=== PATIENT | male | born 1995 ===

== ENCOUNTER 2025-01-09 18:29 | Inpatient (IN) | payer OTHER ==
[~2025-01-09] VITALS: Ht 152.4 cm; Wt 64.8 kg
[2025-01-09] MEDS ORDERED: LORazepam 2 MG/ML 1ML Injection IV ONE ×2 (18:50→21:40)
[2025-01-09] MEDS ORDERED: Ondansetron HCl 2 MG / ML 2ML Vial IV ONE (18:50)
[2025-01-09] MEDS ORDERED: NS 1,000 ML IV SCH (18:50)
[2025-01-09 18:59] LABS: Calcium, Ionized (POC) 1.07 mmol/L (1.10-1.46); Chloride (POC) 95 mmol/L (98-108); Creatinine (POC) 0.6 mg/dL (0.8-1.3); Glucose (ISTAT POC) 262 mg/dL (70-99); Hematocrit (POC) 44.0 % (41.0-53.0); Hemoglobin (POC) 15.0 g/dL (13.5-17.5); Potassium (POC) 3.5 mmol/L (3.5-5.5); Sodium (POC) 133 mmol/L (135-148); Total CO2 (POC) 25 mmol/L (21-32)
[2025-01-09] MEDS ORDERED: CENTRUM SILVER1 EAC2 PO (19:00)
[2025-01-09 19:03] LABS: BASOPHILS ABSOLUTE AUTO 0.07 K/mm3 (0.00-0.23); BASOPHILS PERCENT AUTO 1 % (0-2); EOSINOPHILS ABSOLUTE AUTO 0.00 K/mm3 (0.00-0.68); EOSINOPHILS PERCENT AUTO 0 % (0-6); Hematocrit 41.4 % (37.0-53.0); Hemoglobin 14.6 g/dL (13.5-17.5); IMMATURE GRAN ABSOLUTE AUTO 0.03 K/mm3 (0.00-0.10); IMMATURE GRAN PERCENT AUTO 1 % (0-1); LYMPHOCYTES ABSOLUTE AUTO 0.38 K/mm3 (0.84-5.20); LYMPHOCYTES PERCENT AUTO 6 % (21-46); MONOCYTES ABSOLUTE AUTO 0.48 K/mm3 (0.16-1.47); MONOCYTES PERCENT AUTO 8 % (4-13); Mean Corpuscular HGB Conc 35.3 g/dL (31.5-36.5); Mean Corpuscular Volume 88 fL (80-100); NEUTROPHILS ABSOLUTE AUTO 5.41 K/mm3 (1.96-9.15); NEUTROPHILS PERCENT AUTO 85 % (41-73); NRBC ABSOLUTE 0.00 K/mm3 (0.00-0.02); NRBC Auto 0.0 /100 WBC (0.0-0.2); RDW Coefficient Variation 14.5 % (11.7-14.2); RDW Standard Deviation 47.5 fL (35.1-46.3)
[2025-01-09 19:50] LABS: Platelet Count 92 K/mm3 (150-400)
[2025-01-09 20:08] LABS: Alanine Aminotransfer (ALT/SGP 94.0 U/L (12-78); Albumin, Blood 3.9 g/dL (3.4-5.0); Albumin/Globulin Ratio 0.9 (0.8-1.8); Anion Gap 14.0 mmol/L (3-11); Aspartate Aminotrans (AST/SGOT 173.0 U/L (12-37); Bilirubin, Total 1.1 mg/dL (0.1-1.0); Blood Urea Nitrogen 6.0 mg/dL (8-24); CO2, Blood 24.0 mmol/L (21-32); Calcium, Blood 9.3 mg/dL (8.5-10.1); Chloride, Blood 95.0 mmol/L (98-108); Creatinine, Blood 0.49 mg/dL (0.60-1.20); Globulin, Blood 4.2 g/dL (2.2-4.0); Glucose, Blood 275.0 mg/dL (70-99); Potassium, Blood 3.2 mmol/L (3.5-5.5); Sodium, Blood 130.0 mmol/L (136-145); Total Protein, Blood 8.1 g/dL (6.4-8.2)
[2025-01-09] MEDS ORDERED: Ondansetron HCl 2 MG / ML 2ML Vial IV PRN (22:25)
[2025-01-09] MEDS ORDERED: LORazepam 2 MG/ML 1ML Injection IV PRN ×3 (22:30)
[2025-01-09] MEDS ORDERED: HYDROmorphone HCl/Pf 1MG SYR IV PRN (23:05)
[2025-01-09 23:45] LABS: C-REACTIVE PROTEIN, EXT RANGE 0.377 mg/dL (0.000-0.300); Magnesium, Blood 1.7 mg/dL (1.6-2.4); Phosphorus, Blood 3.7 mg/dL (2.5-4.9)
[2025-01-10] VITALS (33 sets, daily range): BP systolic 76–147; BP diastolic 44–98
--- NOTE | 2025-01-10 01:05 | NUR ---
ARRIVAL NOTE MANJINDER ALCAZAR RECEIVED REPORT FROM ED RN ON THIS PATIENT. PATIENT ARRIVED TO UNIT VIA ED GURNEY. PATIENT ALERT AND AWAKE. MALAY SPEAKING ONLY. PATIENT NOTED TO BE DIAPHORETIC AND HAVE MODERATE/SEVERE TREMORS. PATIENT SLID OVER TO PCU BED FOR SAFETY. LINE PAINTING MACHINE OPERATOR PHONE IN ROOM.
[2025-01-10 04:45] LABS: BASOPHILS ABSOLUTE AUTO 0.07 K/mm3 (0.00-0.23); BASOPHILS PERCENT AUTO 2 % (0-2); EOSINOPHILS ABSOLUTE AUTO 0.02 K/mm3 (0.00-0.68); EOSINOPHILS PERCENT AUTO 0 % (0-6); Hematocrit 41.9 % (37.0-53.0); Hemoglobin 14.0 g/dL (13.5-17.5); IMMATURE GRAN ABSOLUTE AUTO 0.01 K/mm3 (0.00-0.10); IMMATURE GRAN PERCENT AUTO 0 % (0-1); LYMPHOCYTES ABSOLUTE AUTO 0.62 K/mm3 (0.84-5.20); LYMPHOCYTES PERCENT AUTO 13 % (21-46); MONOCYTES ABSOLUTE AUTO 0.55 K/mm3 (0.16-1.47); MONOCYTES PERCENT AUTO 12 % (4-13); Mean Corpuscular HGB Conc 33.4 g/dL (31.5-36.5); Mean Corpuscular Volume 92 fL (80-100); NEUTROPHILS ABSOLUTE AUTO 3.43 K/mm3 (1.96-9.15); NEUTROPHILS PERCENT AUTO 73 % (41-73); NRBC ABSOLUTE 0.00 K/mm3 (0.00-0.02); NRBC Auto 0.0 /100 WBC (0.0-0.2); Platelet Count 82 K/mm3 (150-400); RDW Coefficient Variation 14.8 % (11.7-14.2); RDW Standard Deviation 50.5 fL (35.1-46.3)
[2025-01-10 05:12] LABS: Alanine Aminotransfer (ALT/SGP 78 U/L (12-78); Albumin, Blood 3.5 g/dL (3.4-5.0); Albumin/Globulin Ratio 0.9 (0.8-1.8); Anion Gap 8 mmol/L (3-11); Aspartate Aminotrans (AST/SGOT 117 U/L (12-37); Bilirubin, Total 1.1 mg/dL (0.1-1.0); Blood Urea Nitrogen 3 mg/dL (8-24); CO2, Blood 27 mmol/L (21-32); Calcium, Blood 9.0 mg/dL (8.5-10.1); Chloride, Blood 102 mmol/L (98-108); Creatinine, Blood 0.53 mg/dL (0.60-1.20); Globulin, Blood 3.8 g/dL (2.2-4.0); Glucose, Blood 107 mg/dL (70-99); Potassium, Blood 3.4 mmol/L (3.5-5.5); Sodium, Blood 134 mmol/L (136-145); Total Protein, Blood 7.3 g/dL (6.4-8.2); Triglycerides 77 mg/dL (30-160)
--- NOTE | 2025-01-10 06:40 | NUR ---
SHIFT SUMMARY PT A/OX4. HIGHEST CIWA 14. LAST CIWA 6. MEDICATED PRN WITH IV ATIVAN. LR INFUSING PER EMAR. KCL COMPLETED. PATIENT DENIED PAIN T/O SHIFT. PATIENT EXPRESSED THAT HE JUST WANTED TO SLEEP DUE TO LACK OF SLEEP OVER LAST SEVERAL DAYS. NO SIGNIFICANT EVENTS DURING SHIFT. PLAN OF CARE ONGOING.
[2025-01-10] MEDS ORDERED: Folic Acid 1 MG TAB PO SCH (09:00)
[2025-01-10] MEDS ORDERED: Enoxaparin 40 MG/0.4 ML SYR SC SCH (09:00)
[2025-01-10] MEDS ORDERED: Multivitamins 1 Tab PO SCH (09:00)
--- NOTE | 2025-01-10 11:56 | NUR ---
TRANSFER NOTE: PT TRANSFERED TO ICU BY THIS RN AND AN ICU NURSE. PT CIWA SCORE WAS CONTINUING TO INCREASE EVEN WHILE BEING MEDICATED WITH ATIVAN AND LIBRIUM. PT PULLING AT LINES, CLIMBING OUT OF BED, AND ATTEMPTING TO LEAVE. PT BELARUSIAN SPEAKING ONLY AND DID NOT UNDERSTAND THE SEVERITY OF SYMPTOMS. MD NOTIFIED MULTIPLE TIMES THROUGHOUT COURSE OF MORNING OF PTS INCREASING CIWA. ORDERES RECEIVED FOR ICU TX. PT COMMUNICATED CONCERN FOR FAMILY BEING HIS REASON FOR DESIRE TO DISCHARGE. PT EDUCATED VIA CROSS TIE TURNER PHONE AND CROSS TIE TURNER PAUL THE SEVERITY OF SYMPTOMS AND NEED FOR FURTHER CARE BEFORE SAFE DISCHARGE. PT TRANSFERED TO ICU WITH ALL PERSONAL BELONGINGS. THIS RN OFFERED TO NOTIFY FAMILY, PT DECLINED OFFER DUE TO FAMILY LIVING IN [place]. CARE CONTINUES
[2025-01-10] MEDS ORDERED: PHENobarbital Sodium 65MG / ML 1ML Vial IV ONE (12:40)
[2025-01-10] MEDS ORDERED: NS 1,000 ML IV ONE (14:25)
[2025-01-10] MEDS ORDERED: NS 1,000 ML IV SCH (14:25)
--- NOTE | 2025-01-10 15:41 | NUR ---
PT ARRIVED TO ICU APPROX 1130. UPON ARRIVAL PT APPEARED ANXIOUS, HE WAS VISIBLY DIAPHORETIC AND TREMULOUS. RASS+2. AN BUSINESS CONTINUITY GLOBAL DIRECTOR WAS CALLED VIA BUSINESS CONTINUITY GLOBAL DIRECTOR PHONE SERVICE, JOHN (BUSINESS CONTINUITY GLOBAL DIRECTOR) ASSISTED TO COMPLETE MY NURSING ASSESMENT. PT WAS ORIENTED TO SELF BUT COULD NOT RECALL HIS . ORIENTED TO PLACE BUT NOT SITUATION. AFEBRILE. REPORTED VISUAL HALLUCINATIONS AND DENIED ANY AUDIOLOGICAL HALLUCINATIONS. ANXIOUS, FEARFUL PROVIDED REASSURANCE. GENERALIZED WEAKNESS PRESENT. PRECEDEX WAS STARTED ON THE WAY TO ICU. PT BECAME INCREASINGLY AGITATED ATTEMPTING TO EXIT THE BED. HE WAS NOT REDIRECTABLE AT THAT TIME. PRECEDEX WAS TITRATED TO MAX DOSE WITH NO EFFECT. ANOTHER DOSE OF ATIVAN WAS ADMINISTERED AND 4 POINT TUFF CUFF RESTRAINTS PLACED DUE TO PT UNSAFE BEHAVIOR RELATED TO HIS MENTAL STATUS. RASS +4. PT REMAINED AGITATED, ORDER RECIEVED FOR PHENOBARBITOL AND THIS WAS EFFECTIVE. PT WAS PLACED ON ETCO2 AT RISK FOR APNEA DUE TO MEDICATION ADMINISTRATIONS. PT BECAME DROWSY AND THEN MOD SEDATION -3. O2 PLACED VIA NC SPO2 >95% ON 3LPM. PT BECAME HYPOTENSIVE, 1000ML NS BOLUS ADMINISTERED AND RECIEVED ORDERS FOR CONT FLUID ORDER. AT RISK FOR DEHYDRATION DUE TO EXCESSIVE DIAPHORESIS. EKG COMPLETED TELE SHOWED ST ELEVATION >1 IN 3 LEADS. EKG DID NOT DEMONSTRATE ST ELEVATION >1. SKIN APPEARS INTACT WITH OUT ANY LESIONS OR ECCYMOSIS. GI: ACTIVE BOWEL TONES. : GEOFFREY COLORED URINE, MALE PUREWICK PLACED. FAMILY AT BEDSIDE, SISTER AND BROTHER IN [place]. PT HAS AND MOTHER IN [place].
--- NOTE | 2025-01-10 17:27 | NUR ---
PALLIATIVE CARE VISIT: PT IN ROOM ICU 7, JUST TRANSFERRED FROM PCU 10. PT SEDATED, RR E/U, LIGHTLY SNORING IN ROOM. NO APPARENT S/S OF AGITATION OR DISTRESS AT THIS TIME. SISTER AND CHANDA IN ROOM WITH PT. SISTER IS EDWARD. SHE STATES PT IS . HIS LIVES IN [place] STILL WITH THERE TWO CHILDREN 4 AND 5 Y/O. WIFES NAME IS ISHA RANGEL. PHONE # IS [phone]. SHE DOES NOT SPEAK BELGIAN AND WILL NEED PROCUREMENT OFFICER TO DISCUSS CARE WITH HER. EDWARD DOES SPEAK BELGIAN. UPDATED HER ON HER BROTHERS CONDITION. ISHA REQUESTED WE FIX HER BROTHERS NAME IN SYSTEM. PT LAST NAME IS GILDARDO BARRETT. GILDARDO IS NOT MIDDLE NAME. PLACED WIFES PHONE NUMBER ON CHART AND CALLED ADMITTING TO ADD WIFES NUMBER AND TO CORRECT LAST NAME. PER ADMITTING LAST NAME CANNOT BE CORRECTED UNTIL PT IS DISCHARGED BECAUSE ALL CHARTING AND TEST RESULTS ARE ATTACHED TO THIS RECORD. NOTIFIED PRIMARY RN AND ISHA OF THIS.
--- NOTE | 2025-01-10 22:33 | NUR ---
ASSUMPTION OF CARE: ASSUMED CARE AT START OF SHIFT (1899). REPORT RECEIVED FROM BASIL STROUD RN. PT IS DOING WELL AND RESTING IN BED. PT IS OCCITAN SPEAKING ONLY, LINEN GRADER PHONE IS ROOM WITH PT, ALSO WHEN FAMILY IS PRESENT THEY ARE ABLE TO TRANSLATE FOR THE PT WELL. PT IS ALERT AND FOLLOWING COMMANDS, DENIES ANY PAIN, SP OR SOB AT THIS TIME. LUNG SOUNDS ARE CLEAR AND EQUAL, ON O2 @ 3LPM VIA NC, SPO2 >95%. PT DOES HAVE SLEEP APNEA AND SPO2 WILL DROP INTO THE 60'S BUT PT DOES NOT TOLERATE CPAP MASK. SINUS RYTHM WIH SBP: 110'S MAP >65 HR: 70-80'S. IV: PERIPHERAL IN R FOREARM. MALE PUREWICK IN PLACE AND CONNECTED TO CONTINUOUS SUCTION. LINES AND CORDS PLACED OUT OF REACH. CALL LIGHT PLACED WITHIN REACH.
[2025-01-11] VITALS (28 sets, daily range): BP systolic 90–138; BP diastolic 67–95
[2025-01-11 04:01] LABS: Alanine Aminotransfer (ALT/SGP 87.0 U/L (12-78); Albumin, Blood 3.2 g/dL (3.4-5.0); Albumin/Globulin Ratio 0.8 (0.8-1.8); Anion Gap 10.0 mmol/L (3-11); Aspartate Aminotrans (AST/SGOT 131.0 U/L (12-37); Bilirubin, Direct 0.6 mg/dL (0.0-0.3); Bilirubin, Indirect 0.7 mg/dL (0.1-0.7); Bilirubin, Total 1.3 mg/dL (0.1-1.0); Blood Urea Nitrogen 5.0 mg/dL (8-24); CO2, Blood 27.0 mmol/L (21-32); Calcium, Blood 9.0 mg/dL (8.5-10.1); Chloride, Blood 102.0 mmol/L (98-108); Creatinine, Blood 0.62 mg/dL (0.60-1.20); Globulin, Blood 4.1 g/dL (2.2-4.0); Glucose, Blood 98.0 mg/dL (70-99); Magnesium, Blood 1.9 mg/dL (1.6-2.4); Phosphorus, Blood 3.7 mg/dL (2.5-4.9); Potassium, Blood 3.5 mmol/L (3.5-5.5); Sodium, Blood 135.0 mmol/L (136-145); Total Protein, Blood 7.3 g/dL (6.4-8.2)
--- NOTE | 2025-01-11 05:54 | NUR ---
SHIFT SUMMARY: PT IS DOING WELL AND RESTING IN BED. PT WAS ABLE TO SLEEP MOST OF THE NIGHT. NO ACUTE CHANGES DURIG THE SHIFT. PT HAS SLEEP APNEA AND THEIR SPO2 WILL BRIEFLY DROP INTO THE 50'S BEFORE GOING BACK INTO THE 90'S. OXI MASK AT 10LPM WAS USED AND SPO2 >95%. REST OF THE VITAL SIGNS REMAINED STABLE. CIWA SCORES HAVE BEEN BETWEEN 4-8 DURING THE NIGHT, ATIVAN AND LIBRIUM AVAILABLE PER EMR ORDES. PT HAS MALE PUREWICK IN PLACE AND CONNECTED TO CONTINUOUS SUCTION. LINES AND CORDS PLACED OUT OF REACH. CALL LIGHT PLACED WITHIN REACH.
--- NOTE | 2025-01-11 14:37 | NUR ---
SHIFT SUMMARY NEURO: ALERT AND ORIENTED X4. CALLS APPROPRIATELY AND ABLE TO MAKE HIS NEEDS KNOWN. CIWA 11 THIS AM, +DIAPHORESIS, +TREMOR, +ANXIETY - REQUESTING TO LEAVE THIS AM. AFEBRILE. GENERALIZED WEAKNESS, ABLE TO TRANSFER/AMBULATE SBA. CIWA IMPROVED AFTER PRN IV ATIVAN AND PRN LIBRIUM. CIWA: 4 AND THEN 2. CARDIAC: SBP 110-130S, [id number]. SINUS TACH THIS SHIFT SO FAR. HR INCREASING TO 120-140 WITH ACTIVITY. PULM: LUNGS CLEAR TO AUSCULATION. SPO2 >95% ON RA. ON 3LPM VIA NC WHILE SLEEPING. GI: +LOOSE STOOLS X 4, BROWN IN COLOR. HYPER ACTIVE BOWEL TONES. DENIED ANY N/V. : PUREWICK REMOVED. PT USED COMMODE AND CONTINENT OF URINE. SKIN: APPEARS INTACT WITH THE EXCEPTION OF A BAND AID ON HIS HAND SMALL ABRASION PRESENT PT LEFT AMA AT 1145. 40MIN SPENT THIS AM PROVIDING EDUCATION AND UPDATES ON HIS CLINICAL DIAGANOSES VIA A TELEPHONE SPECIALTIES OPERATOR. ANOTHER 30MIN SPENT THIS AFTERNOON REVIEWING RISKS OF LEAVING AMA AND PROVIDING EDUCATION. PT STATED THAT HIS SISTER WAS GOING TO COME AND PICK HIM UP.
== END 2025-01-11 12:00 | disposition left against medical advice (07) | DRG 894 ==
LOC: ER 18:29 → ICUE 21:54 → PCU 21:54 → ERHOLD 21:54 → EDBD 21:54 → PCU 01-10 01:00 → ICUE 01-10 12:07
PROVIDERS: Emergency Medicine; Internal Medicine; Student in an Organized Health Care Education/Training Program; ADMIT Internal Medicine
DX: F10.231 Alcohol dependence with withdrawal delirium (principal); G92.8 Other toxic encephalopathy; E87.1 Hypo-osmolality and hyponatremia; E87.20 Acidosis, unspecified; D64.9 Anemia, unspecified; D69.6 Thrombocytopenia, unspecified; Z53.29 Procedure and treatment not carried out because of patient's decision for other reasons; E86.0 Dehydration; E87.6 Hypokalemia; R73.9 Hyperglycemia, unspecified; K70.0 Alcoholic fatty liver; G47.33 Obstructive sleep apnea (adult) (pediatric)
CPT/HCPCS: 36415; 71045; 74177; 80047; 80053; 82248; 83605; 83690; 83735; 84100; 84478; 84484; 85014; 85025; 86140; 93005; 93010; 94762; 96361; 96374; 96375; 96376; 99285-25; A9270; J1650; J2060; J2405; J2560; J3411; J3480; J7030; J7050; J7120; Q9967

== ENCOUNTER 2025-01-12 09:41 | Inpatient (IN) | payer OTHER ==
[~2025-01-12] VITALS: Ht 162.6 cm; Wt 75.5 kg
[2025-01-12] VITALS (11 sets, daily range): BP systolic 115–130; BP diastolic 63–87
[~2025-01-12 09:41] MED LIST: CENTRUM SILVER1 EAC2 PO
[2025-01-12] MEDS ORDERED: Morphine Sulfate 4 MG/1 ML Injection IV ONE ×3 (10:30→13:30)
[2025-01-12] MEDS ORDERED: NS 1,000 ML IV SCH (10:30)
[2025-01-12] MEDS ORDERED: Ondansetron HCl 2 MG / ML 2ML Vial IV ONE (10:30)
[2025-01-12 10:52] LABS: Source, Urine Clean Catch
[2025-01-12 10:52] LABS: BASOPHILS ABSOLUTE AUTO 0.09 K/mm3 (0.00-0.23); BASOPHILS PERCENT AUTO 1 % (0-2); EOSINOPHILS ABSOLUTE AUTO 0.07 K/mm3 (0.00-0.68); EOSINOPHILS PERCENT AUTO 1 % (0-6); Hematocrit 46.7 % (37.0-53.0); Hemoglobin 16.0 g/dL (13.5-17.5); IMMATURE GRAN ABSOLUTE AUTO 0.05 K/mm3 (0.00-0.10); IMMATURE GRAN PERCENT AUTO 1 % (0-1); LYMPHOCYTES ABSOLUTE AUTO 0.76 K/mm3 (0.84-5.20); LYMPHOCYTES PERCENT AUTO 12 % (21-46); MONOCYTES ABSOLUTE AUTO 0.82 K/mm3 (0.16-1.47); MONOCYTES PERCENT AUTO 13 % (4-13); Mean Corpuscular HGB Conc 34.3 g/dL (31.5-36.5); Mean Corpuscular Volume 92 fL (80-100); NEUTROPHILS ABSOLUTE AUTO 4.59 K/mm3 (1.96-9.15); NEUTROPHILS PERCENT AUTO 72 % (41-73); NRBC ABSOLUTE 0.00 K/mm3 (0.00-0.02); NRBC Auto 0.0 /100 WBC (0.0-0.2); Platelet Count 122 K/mm3 (150-400); RDW Coefficient Variation 14.6 % (11.7-14.2); RDW Standard Deviation 49.0 fL (35.1-46.3)
[2025-01-12 11:14] LABS: Magnesium, Blood 2.0 mg/dL (1.6-2.4)
[2025-01-12 11:29] LABS: Alanine Aminotransfer (ALT/SGP 102.0 U/L (12-78); Albumin, Blood 3.8 g/dL (3.4-5.0); Albumin/Globulin Ratio 0.8 (0.8-1.8); Anion Gap 8.0 mmol/L (3-11); Aspartate Aminotrans (AST/SGOT 125.0 U/L (12-37); Bilirubin, Total 0.7 mg/dL (0.1-1.0); Blood Urea Nitrogen 14.0 mg/dL (8-24); CO2, Blood 26.0 mmol/L (21-32); Calcium, Blood 9.4 mg/dL (8.5-10.1); Chloride, Blood 103.0 mmol/L (98-108); Creatinine, Blood 0.63 mg/dL (0.60-1.20); Globulin, Blood 4.6 g/dL (2.2-4.0); Glucose, Blood 112.0 mg/dL (70-99); Potassium, Blood 3.6 mmol/L (3.5-5.5); Sodium, Blood 133.0 mmol/L (136-145); Total Protein, Blood 8.4 g/dL (6.4-8.2)
[2025-01-12 11:55] LABS: Bilirubin, Urine Neg (Neg); Color, Urine Yellow (P-Yellow); Glucose Qualitative, Urine Neg (Neg); Ketones, Urine 3+ (Neg); Leukocyte Esterase, Urine Neg (Neg); Protein, Urine 2+ (Neg); Specific Gravity, Urine 1.015 (1.003-1.022); Urobilinogen, Urine NORM (Normal)
[2025-01-12 12:27] LABS: White Blood Cells, Urine 0-2 /hpf (0-5)
[2025-01-12 12:28] LABS: Red Blood Cells, Urine 0-2 /hpf (0-2)
[2025-01-12] MEDS ORDERED: Piperacillin/Tazobactam Sod 4.5 GM in NS 100 ML IV ONE (12:35)
[2025-01-12 13:29] LABS: Prothrombin Time Results 11.6 Sec (9.7-11.5)
[2025-01-12] MEDS ORDERED: Sugammadex Sodium 200 MG/2ML SDV (100 MG/ML) ONE (13:44)
[2025-01-12] MEDS ORDERED: Ketorolac Tromethamine 30mg Vial ONE (13:44)
[2025-01-12] MEDS ORDERED: Rocuronium Bromide 10 MG/ML 5ML Injection IV ONE (13:44)
[2025-01-12] MEDS ORDERED: FentaNYL Citrate 50 MCG/ML 2 ML Injection ONE ×2 (13:44→16:10)
[2025-01-12] MEDS ORDERED: Ondansetron HCl 2 MG / ML 2ML Vial ONE (13:44)
[2025-01-12] MEDS ORDERED: Dexamethasone Sod Phos 10 MG/ML 1ML VIAL ONE (13:44)
[2025-01-12] MEDS ORDERED: HYDROmorphone HCl/Pf 1MG SYR IV PRN ×2 (14:00→14:10)
[2025-01-12] MEDS ORDERED: LORazepam 2 MG/ML 1ML Injection IV PRN (14:00)
[2025-01-12] MEDS ORDERED: Ondansetron HCl 2 MG / ML 2ML Vial IV PRN ×2 (14:00→14:10)
[2025-01-12] MEDS ORDERED: Metoclopramide HCl 5MG / ML 2ML Vial IV PRN (14:05)
[2025-01-12] MEDS ORDERED: FentaNYL Citrate 50 MCG/ML 2 ML Injection IV PRN ×3 (14:10)
[2025-01-12] MEDS ORDERED: Midazolam HCl 1MG / ML 2ML Vial IV PRN (14:10)
--- NOTE | 2025-01-12 14:12 | NUR ---
PT TRANSPORTED TO [facility] FROM ED. TRANSLATION USED VIA PHONE. AGREES WITH PLANNED SURGERY. LUNG SOUNDS CLEAR. TREMULOUS. STATES HE HAS NOT HAD ETOH IN A WEEK. NPO SINCE 1000 STATES HE ONLY HAD WATER TODAY.
[2025-01-12] MEDS ORDERED: Bupivacaine 0.25% Epi 1:200000 30 ML Vial ONE (14:29)
[2025-01-12] MEDS ORDERED: Phenylephrine HCl 100 MCG/ML-NS 10MLSYR (1MG/10ML) ONE (15:13)
[2025-01-12] MEDS ORDERED: Ketorolac Tromethamine 15mg Vial IV PRN (17:35)
[2025-01-12] MEDS ORDERED: FLU VACC TS2025-26(6MOS UP)/PF 45 MCG/0.5 ML SYRINGE IM SCH (18:00)
[2025-01-12] MEDS ORDERED: Piperacillin/Tazobactam Sod 4.5 GM in NS 100 ML IV SCH (18:00)
--- NOTE | 2025-01-12 18:28 | NUR ---
SHIFT SUMMARY: PATIENT ARRIVES TO THE UNIT AROUND 1700 AND TRANSFEREED TO OUR BED WITH A SLIDER SHEET. IS ALERT AND ORIENTED X4 & COOPERATIVE WITH HIS CARE. PATIENT IS UGANDAN SPEAKING ONLY. THIS RN IS ABLE TO SPEAK UGANDAN & COMMUNICATE WITH PATIENT. PATIENT IS STAND BY ASSIST FOR STABILITY HE IS TREMULEOUS. PATIENT NOTIFIED FAMILY ABOUT THE ARRIVAL. HAS 3 LAP SITES ON HIS ABDOMEN FROM APPENDECTOMY TODAY. PATIENT WAS MEDICATED PER EMAR FOR 8/10 ABDOMINAL PAIN. PATIENT ORIETNED TO ROOM AND CALL SYSTEM. PATIENT IS REGULAR DIET AND ATE DINNER WITHOUT ANY PROBLEMS. THIAMINE & FOLIC TO BE STARTED ONCE PHARMACY SENDS THEM DOWN. PATIENT HAS CALL LIGHT WITHIN REACH, BED IN LOWEST LOCKED POSITION & STATING NOTHING ELSE IS NEEDED AT THIS TIME.
[2025-01-12] MEDS ORDERED: Lactobacil 2-S.Thermo-Bifido 1 1 Cap PO SCH (21:00)
[2025-01-13] VITALS (7 sets, daily range): BP systolic 98–125; BP diastolic 63–88
[2025-01-13 04:38] LABS: BASOPHILS ABSOLUTE AUTO 0.04 K/mm3 (0.00-0.23); BASOPHILS PERCENT AUTO 0 % (0-2); EOSINOPHILS ABSOLUTE AUTO 0.00 K/mm3 (0.00-0.68); EOSINOPHILS PERCENT AUTO 0 % (0-6); Hematocrit 42.0 % (37.0-53.0); Hemoglobin 14.0 g/dL (13.5-17.5); IMMATURE GRAN ABSOLUTE AUTO 0.05 K/mm3 (0.00-0.10); IMMATURE GRAN PERCENT AUTO 1 % (0-1); LYMPHOCYTES ABSOLUTE AUTO 0.57 K/mm3 (0.84-5.20); LYMPHOCYTES PERCENT AUTO 6 % (21-46); MONOCYTES ABSOLUTE AUTO 1.10 K/mm3 (0.16-1.47); MONOCYTES PERCENT AUTO 12 % (4-13); Mean Corpuscular HGB Conc 33.3 g/dL (31.5-36.5); Mean Corpuscular Volume 91 fL (80-100); NEUTROPHILS ABSOLUTE AUTO 7.13 K/mm3 (1.96-9.15); NEUTROPHILS PERCENT AUTO 80 % (41-73); NRBC ABSOLUTE 0.00 K/mm3 (0.00-0.02); NRBC Auto 0.0 /100 WBC (0.0-0.2); Platelet Count 144 K/mm3 (150-400); RDW Coefficient Variation 14.4 % (11.7-14.2); RDW Standard Deviation 48.1 fL (35.1-46.3)
--- NOTE | 2025-01-13 05:06 | NUR ---
SHIFT SUMMARY: PT IS A&&OX4, SERBIAN SPEAKING ONLY, DECK BUILDER PHONE USED FOR COMMUNICATION. C/O PAIN TO HIS LLQ SURGICAL SITE 11/09, MEDICATED PER EMAR. 3 LAP SITES CLOSED WITH SURGICAL GLUE, KRISHNA. PT ALSO HAS AN OLD LEFT THUMB WOUND, CLEANSED WITH NS, REDRESSED WITH A BANDAGE. NO WOUND CARE ORDERS AT THIS TIME. TOLERATING A REGULAR DIET WITH A ROBUST APPETITE. SBA TO BR. VOIDING ADEQUATE AMOUNTS OF CLEAR, PALE YELLOW URINE IN URINAL INDEPENDENTLY. NO BM THIS SHIFT. BED IN LOWEST POSITION, CALL LIGHT WITHIN REACH. CALL CALL LIGHT WITHIN REACH AND HE CALLS APPROPRIATELY. CALLED REPORT TO TRACY ON SURGICAL FLOOR. TRANSFERED PT IN BED WITH ALL BELONGINGS TO ROOM 212 AT 0515.
[2025-01-13 05:23] LABS: Alanine Aminotransfer (ALT/SGP 91.0 U/L (12-78); Albumin, Blood 3.2 g/dL (3.4-5.0); Albumin/Globulin Ratio 0.8 (0.8-1.8); Anion Gap 10.0 mmol/L (3-11); Aspartate Aminotrans (AST/SGOT 85.0 U/L (12-37); Bilirubin, Total 0.6 mg/dL (0.1-1.0); Blood Urea Nitrogen 7.0 mg/dL (8-24); CO2, Blood 26.0 mmol/L (21-32); Calcium, Blood 9.2 mg/dL (8.5-10.1); Chloride, Blood 101.0 mmol/L (98-108); Creatinine, Blood 0.57 mg/dL (0.60-1.20); Globulin, Blood 4.0 g/dL (2.2-4.0); Glucose, Blood 182.0 mg/dL (70-99); Potassium, Blood 3.5 mmol/L (3.5-5.5); Sodium, Blood 133.0 mmol/L (136-145); Total Protein, Blood 7.2 g/dL (6.4-8.2)
--- NOTE | 2025-01-13 06:12 | NUR ---
ARRIVAL TO UNIT PT TRANSFER FROM U @ 8072. PT ADMITTED ON 01/12/25 FOR ACUTE APPENDICITIS. VSS. SINUS RHYTHM @ 84 PER TELETECH. LAP SITES X3 KRISHNA C/D/I. PT PAIN MANAGED WELL PER EMAR. PT ORIENTED TO ROOM. CALL LIGHT WITHIN REACH.
[2025-01-13] MEDS ORDERED: HYDROmorphone HCl/Pf 1MG SYR IV PRN (16:15)
--- NOTE | 2025-01-13 17:43 | NUR ---
SUMMARY NO ACUTE CHANGES THIS SHIFT. VSS. ASSUMED CARE OF PT @0700. UTILIZING COPY DIRECTOR PHONE TO COMMUNICAE WITH PT HE IS POLISH SPEAKING. PAIN MEDS BEING ADMINISTERED AT VARYING TIMES T/O SHIFT - PAIN PRESENTS OFTEN - MEDICATION ORDERS CHANGED BY PHYSICIAN. PT PRESENTS WITH MILD TREMORS BUT NOT WITH OTHER S/SX OF ETOH WITHDRAWAL - PT UPHOLDS LAST DRINK BEING >2WEEKS AGO. PT RECEIVIED 1L FLUIDS TODAY WELL IV THIAMINE/FOLATE DOSING - TOLERATED WELL. PT VOIDING OFTEN. STATES HAD DIARRHEA BUT HAS SUBSIDED. WANTED SLEEP MEDS FOR TONIGHT- MEDS ORDERED. PT RECEIVING CARE MANAGEMENT HELP IN THE FORM OF COMMUNITY RESOURCE ACQUISITION, INSURANCE ACCEPTANCE, ETC. PT REQUESTING NOT TO DC TOMORROW HE STILL FEELS "ILL" AND NOT WANTING TO GO HOME JUST YET.
[2025-01-14 03:44] VITALS: BP 115/84
--- NOTE | 2025-01-14 05:16 | NUR ---
SHIFT SUMMARY POD 1 LAP APPENDECTOMY. LAP SITES X3 C/D/I KRISHNA. PAIN MANAGED WELL PER EMAR. PT A&O X4, AZERI SPEAKING ONLY, SOCIAL MEDIA MARKETING SPECIALIST PHONE USE FOR COMMUNICATION. PT PRESENTS WITH MILD TREMORS W/ NO OTHER S/S OF ETOH WITHDRAWAL. PT REPORTS TREMORS ARE BASELINE. NO ACUTE CHANGES THIS SHIFT. VSS. STRUCTURAL STEEL FITTER REPORTS SINUS RHYTHM @ 97 BPM. PT RESTING IN BED, RESPIRATIONS EVEN AND UNLABORED. NO DISTRESS NOTED. CALL LIGHT WITHIN REACH.
[2025-01-14 08:04] VITALS: BP 117/72
[2025-01-14] MEDS ORDERED: Folic Acid 1 MG TAB PO SCH (09:00)
--- NOTE | 2025-01-14 10:31 | NUR ---
PT MEDICATED WITH LIBRIUM. PER [facility], ONSET OF STUTTER IS NEW AFTER SURGERY PER PT. TREMOR ONSET IS NEW AFTER SURGERY WELL. PT SCORES AN EIGHT ON CIWA ASSESSMENT.
--- NOTE | 2025-01-14 10:48 | NUR ---
PT PROVIDED FORMED STOOL SAMPLE AFTER TELLING MD HE WAS HAVING WATERY EXPLOSIVE DIARRHEA. LAB UNABLE TO RUN IF FORMED. MD NOTIFIED. WILL CONTINUE TO MONITOR.
[2025-01-14 14:43] VITALS: BP 120/73
[2025-01-14 19:59] VITALS: BP 112/75
[2025-01-15 03:39] VITALS: BP 99/71
[2025-01-15 04:30] LABS: BASOPHILS ABSOLUTE AUTO 0.15 K/mm3 (0.00-0.23); BASOPHILS PERCENT AUTO 3 % (0-2); EOSINOPHILS ABSOLUTE AUTO 0.25 K/mm3 (0.00-0.68); EOSINOPHILS PERCENT AUTO 4 % (0-6); Hematocrit 44.9 % (37.0-53.0); Hemoglobin 14.9 g/dL (13.5-17.5); IMMATURE GRAN ABSOLUTE AUTO 0.07 K/mm3 (0.00-0.10); IMMATURE GRAN PERCENT AUTO 1 % (0-1); LYMPHOCYTES ABSOLUTE AUTO 1.45 K/mm3 (0.84-5.20); LYMPHOCYTES PERCENT AUTO 24 % (21-46); MONOCYTES ABSOLUTE AUTO 1.03 K/mm3 (0.16-1.47); MONOCYTES PERCENT AUTO 17 % (4-13); Mean Corpuscular HGB Conc 33.2 g/dL (31.5-36.5); Mean Corpuscular Volume 94 fL (80-100); NEUTROPHILS ABSOLUTE AUTO 3.16 K/mm3 (1.96-9.15); NEUTROPHILS PERCENT AUTO 52 % (41-73); NRBC ABSOLUTE 0.00 K/mm3 (0.00-0.02); NRBC Auto 0.0 /100 WBC (0.0-0.2); Platelet Count 188 K/mm3 (150-400); RDW Coefficient Variation 14.7 % (11.7-14.2); RDW Standard Deviation 51.6 fL (35.1-46.3)
--- NOTE | 2025-01-15 04:36 | NUR ---
SHIFT SUMMARY POD 3 S/P LAP APPY. ABD INCISIONS CDI. PT IND IN ROOM. CATHY PO INTAKE. IV PATENT/SL. PAIN MANAGED PER EMAR. ABLE TO MAKE NEEDS KNOWN VIA GRAIN BROKER AND MARKET OPERATOR PHONE AND SOME ESTONIAN. RECENT CIWA SCORE OF 8 NOTED, MEDICATED PER EMAR. PT CURRENTLY RESTING IN BED WITH EYES CLOSED, RESP EVEN/UNLABORED AND CALL LIGHT IN REACH. WILL GIVE REPORT TO ONCOMING RN.
[2025-01-15 05:04] LABS: Anion Gap 7.0 mmol/L (3-11); Blood Urea Nitrogen 7.0 mg/dL (8-24); CO2, Blood 29.0 mmol/L (21-32); Calcium, Blood 9.1 mg/dL (8.5-10.1); Chloride, Blood 105.0 mmol/L (98-108); Creatinine, Blood 0.65 mg/dL (0.60-1.20); Glucose, Blood 115.0 mg/dL (70-99); Potassium, Blood 3.4 mmol/L (3.5-5.5); Sodium, Blood 138.0 mmol/L (136-145)
[2025-01-15 07:16] VITALS: BP 102/74
[2025-01-15 14:46] VITALS: BP 115/77
[2025-01-15 19:23] VITALS: BP 119/78
[2025-01-15 22:26] VITALS: BP 115/71
--- NOTE | 2025-01-16 04:31 | NUR ---
SHIFT SUMMARY POD 4 S/P LAP APPY. NO ACUTE CHANGES T/O NIGHT. PT CATHY LARGE AMOUNTS OF PO INTAKE, DENIES N/V. IS VOIDING, PASSING FLATUS AND HAVING BM. IS A/OX4 WITH VSS AND ABLE TO MAKE NEEDS KNOWN. IND IN ROOM. IV PATENT/SL. MEDICATED X1 FOR PAIN PER EMAR. ABD INCISIONS SITES CDI WITH NO DRAINAGE NOTED. CIWA SCORES OF 1 T/O SHIFT. NO SX OF STUTTERING NOTED BY RN. PT CURRENTLY RESTING IN BED, EYES CLOSED AND CALL LIGHT IN REACH.
[2025-01-16 04:47] VITALS: BP 91/69
[2025-01-16] MEDS ORDERED: Acetaminophen650 M1 PO (07:50)
[2025-01-16] MEDS ORDERED: FOLI1 PO (07:51)
[2025-01-16] MEDS ORDERED: GABA300 PO (07:52)
[2025-01-16] MEDS ORDERED: NAPR500 PO (07:53)
[2025-01-16] MEDS ORDERED: OXAYDO5 M1 PO (07:53)
[2025-01-16] MEDS ORDERED: B-1100 M1 PO (07:54)
[2025-01-16] MEDS ORDERED: TRAZ50 PO (07:54)
--- NOTE | 2025-01-16 08:04 | NUR ---
PT DECLINES TO HAVE MEDICATIONS FAXED OR ELECTRONICALLY SENT TO A PHARMACY.
[2025-01-16 08:10] VITALS: BP 116/74
--- NOTE | 2025-01-16 10:18 | NUR ---
NURSE/PROVIDER ROUNDING THIS RN AND DR. EMMANUEL ROUNDED ON PT AND USED THE BRAKE OPERATOR HEAVY DUTY PHONE TO EDUCATE PT ON TREATMENT PLAN AND DISCHARGE INSTRUCTIONS. PT VERBALIZED AN UNDERSTANDING AND PREFERS [facility] ON [address] TO SEND NEW RX'S TO. TELE BOX DC'D AND RETURNED TO PCU. PLAN TO REMOVE IV. PT GETTING DRESSED AND GATHERING PERSONAL BELONGINGS AT THIS TIME.
--- NOTE | 2025-01-16 12:07 | NUR ---
DISCHARGE PATIENT VSS, IV TAKEN OUT ALL INSTRUCTIONS READ AND TRANSLATED THROUGH TRANSLINK PHONE. TYLENOL GIVEN FOR PAIN. PRESCRIPTION HARD COPY WITH PATIENT. ALL BELONGINGS WITH PATIENT. PATIENT WALKS OUT HIMSELF.
== END 2025-01-16 12:06 | disposition home or self-care (01) | DRG 397 ==
LOC: ER 09:41 → PCU 13:56 → SURS 13:56 → PCU 16:40 → SURS 01-13 05:11
PROVIDERS: Emergency Medicine; Student in an Organized Health Care Education/Training Program; Surgery; ADMIT Internal Medicine
PROC: 3E03329 Introduction of Other Anti-infective into Peripheral Vein, Percutaneous Approach (ICD-10-PCS; 2025-01-12)
PROC: 0DTJ4ZZ Resection of Appendix, Percutaneous Endoscopic Approach (ICD-10-PCS; principal; 2025-01-12 14:30)
DX: K35.80 Unspecified acute appendicitis (principal); K85.20 Alcohol induced acute pancreatitis without necrosis or infection; F10.239 Alcohol dependence with withdrawal, unspecified; J98.11 Atelectasis; E87.1 Hypo-osmolality and hyponatremia; K70.0 Alcoholic fatty liver; K70.10 Alcoholic hepatitis without ascites; E87.6 Hypokalemia
CPT/HCPCS: 36415; 51798; 74177; 80048; 80053; 80320; 81001; 83690; 83735; 84439; 84443; 84481; 85025; 85610; 85730; 86850; 86900; 86901; 88304; 92523; 93005; 93010; 96361; 96365; 96375; 96376; 97110; 97116; 97162; 97165; 97530; 99285-25; A9270; J1100; J1171; J1885; J2250; J2270; J2371; J2405; J2543; J2704; J3010; J3411; J7030; J7120; Q9967